=== PATIENT | male | born 1965 | race Caucasian/White ===

== ENCOUNTER → 2019-05-13 | Outpatient (CLI) | payer SELFPAY ==
[~2019-05-13] MED LIST: ALLEGRA180 MG PO; AMOXICILLIN500 MG PO; BACTRIM DS 8001 TA1 PO; BIAXIN500 MG PO; CLARITIN10 MG PO; DOXYCYCLINE MO100 MG PO; FLEXERIL10 MG PO; FLONASE 0.05% 121 EA NAS; FLONASE0.05 MG/AC NS; HYDROCODONE BIT1 T11 PO; KEFLEX500 MG PO; MOTRIN600 MG PO; MOTRIN800 MG PO; NKHM; NORCO 5-325 TA1 EACH PO; PROAIR HFA8.5 GM INH; TOBREX OPHTH S2.5 ML OPH; TRAMADOL HCL50 MG PO; TRIMOX500 MG PO; VICODIN ES 7501 TAB PO
--- NOTE | ~2019-05-13 | EKG ---
[place], [place] ELECTROCARDIOGRAM REPORT NAME: RAJ BECERRA UNIT #: [id number] ROOM: DOCTOR: EPIPHANY DRAFT REPORT BIRTHDATE: [birth year] [facility] Test Date: 2019-05-13 Test Time: 12:00:57 Pat Name: RAJ BECERRA Department: Room: Gender: Application Support Technician: : [id number] Requested By: SHANEL KENNEDY Order Number: [id number] Reading MD: Roland Saunders MD Measurements Intervals [place] Rate: 60 P: 80 [place]: 172 QRS: 87 QRSD: 96 T: 76 QT: 411 QTc: 411 Interpretive Statements Sinus rhythm Anteroseptal infarct, age indetermined Electronically Signed On 05-13-2019 14:46:43 PDT by Roland Saunders MD CM:EKGRPT:ELECTROCARDIOGRAM REPORT 1200 [id number] SHANEL KENNEDY MD EPIPHANY DRAFT REPORT SHANEL KENNEDY MD
== END | disposition home or self-care (01) ==
LOC: CARD 11:41
DX: R07.9 Chest pain, unspecified (principal)

== ENCOUNTER → 2019-11-12 | Outpatient (CLI) | payer OTHER | END | disposition home or self-care (01) | LOC: RAD 11:54 | DX: J44.1 Chronic obstructive pulmonary disease with (acute) exacerbation (principal) ==

== ENCOUNTER 2020-07-27 10:16 | Emergency (ER) | payer OTHER ==
[~2020-07-27] VITALS: Ht 170.1 cm; Wt 56.7 kg
[2020-07-27 10:47] LABS: BASO % 0.2 % (0.0-1.0); EOS % 0.3 % (1.0-4.0); HEMATOCRIT 45.7 % (42.0-52.0); LYMPH # 2.1 10*3/uL (1.3-4.4); LYMPH % 32.8 % (27.0-41.0); MEAN CELL VOLUME 98.3 fl (80.0-94.0); MEAN CORPUSCULAR HGB 33.3 pg (27.0-31.0); MEAN CORPUSCULAR HGB CONC 33.9 g/dl (33.0-37.0); MEAN PLATELET VOLUME 8.9 fl (9.6-12.3); MONO # 0.5 10*3/uL (0.1-1.0); MONO % 7.3 % (3.0-9.0); NEUT # 3.8 10*3/uL (2.3-7.9); NEUT % 59.4 % (47.0-73.0); PLATELET COUNT AUTOMATED 221 10*3/uL (130-400); RED BLOOD COUNT 4.65 10*6/uL (4.50-5.90); RED CELL DISTRI WIDTH 11.9 % (0-14.5); WHITE BLOOD COUNT 6.4 10*3/uL (4.8-10.8)
[2020-07-27 11:02] LABS: ALBUMIN 3.6 gm/dl (3.1-4.5); ALKALINE PHOSPHATASE 56 U/L (45-117); BUN 9 mg/dl (7-24); CHLORIDE 104 mmol/L (98-107); CREATININE 0.74 mg/dL (0.70-1.30); LIPASE 82 U/L (73-393); SGOT/AST 18 IU/L (3-35); SGPT/ALT 29 U/L (12-78); SODIUM 137 mmol/L (136-145); TOTAL PROTEIN 7.3 gm/dL (6.4-8.2)
[2020-07-27 11:47] LABS: BILIRUBIN Negative (Negative); BLOOD Negative (Negative); CLARITY Clear (Clear); COLOR Yellow (Yellow); GLUCOSE Negative (Negative); KETONE Negative (Negative); LEUKO ESTERASE Negative (Negative); NITRITE Negative (Negative); PH 5.5 (4.5-8.0); UROBILINOGEN 0.2 E.U./dl (0.0-1.0)
[2020-07-27 11:54] LABS: BACTERIA TRACE; EPITHELIAL CELLS 0-2; RBC 0-2 rbc/hpf (0-2); WBC 0-2 wbc/hpf (0-5)
[2020-07-27] MEDS ORDERED: NORCO 5-325 TA1 EACH PO (12:10)
== END 2020-07-27 12:28 | disposition home or self-care (01) ==
LOC: ED 10:16
PROVIDERS: Physician Assistant
DX: K46.9 Unspecified abdominal hernia without obstruction or gangrene (principal); Z79.899 Other long term (current) drug therapy

== ENCOUNTER 2022-01-22 16:05 | Emergency (ER) | payer OTHER ==
[~2022-01-22] VITALS: Wt 56.7 kg
[2022-01-22] MEDS ORDERED: METOPROLOL SUCC50 M1 PO (16:39)
[2022-01-22] MEDS ORDERED: ASPIRIN ADULT L81 M2 PO (16:39)
[2022-01-22] MEDS ORDERED: CEPHALEXIN500 M1 PO (17:24)
== END 2022-01-22 17:27 | disposition home or self-care (01) ==
LOC: ED 16:05
DX: S61.213A Laceration without foreign body of left middle finger without damage to nail, initial encounter (principal); Z79.899 Other long term (current) drug therapy; Z79.82 Long term (current) use of aspirin; W22.8XXA Striking against or struck by other objects, initial encounter; Y93.89 Activity, other specified; Y92.89 Other specified places as the place of occurrence of the external cause; Y99.8 Other external cause status

== ENCOUNTER 2024-06-04 18:51 | Emergency (ER) | payer OTHER ==
[~2024-06-04] VITALS: Ht 170.1 cm; Wt 59.0 kg
[~2024-06-04 18:51] MED LIST changes: +ASPIRIN ADULT L81 M2 PO; +CEPHALEXIN500 M1 PO; +METOPROLOL SUCC50 M1 PO
[2024-06-04] MEDS ORDERED: PENICILLIN VK500 MG PO (19:17)
[2024-06-04] MEDS ORDERED: PENICILLIN V POTASSIUM 500 MG TAB PO ONE (19:20)
== END 2024-06-04 19:21 | disposition home or self-care (01) ==
LOC: ED 18:51
DX: K08.89 Other specified disorders of teeth and supporting structures (principal); J45.909 Unspecified asthma, uncomplicated; F17.200 Nicotine dependence, unspecified, uncomplicated; Z98.890 Other specified postprocedural states

== ENCOUNTER 2024-09-22 17:42 | Emergency (ER) | payer OTHER ==
[~2024-09-22 17:42] MED LIST changes: +PENICILLIN VK500 MG PO
[2024-09-22] MEDS ORDERED: Albuterol Sulf/Ipratropium 3 ML VIAL NEB ONE (19:30)
[2024-09-22] MEDS ORDERED: methylPREDNISolone sod succ 125 MG VIAL IM ONE (19:30)
[2024-09-22] MEDS ORDERED: AVPAK AZITHROM250 M1 PO (21:20)
[2024-09-22] MEDS ORDERED: PREDNISONE50 MG PO (21:20)
== END 2024-09-22 21:41 | disposition home or self-care (01) ==
LOC: ED 17:42
DX: J44.1 Chronic obstructive pulmonary disease with (acute) exacerbation (principal); I25.2 Old myocardial infarction; Z98.890 Other specified postprocedural states